=== PATIENT | female | born 1930 | race Caucasian/White ===

== ENCOUNTER 2020-01-07 21:08 | Inpatient (IN) | payer OTHER, MEDICAID ==
[~2020-01-07] VITALS: Ht 144.8 cm; Wt 65.8 kg
--- NOTE | 2020-01-07 21:11 | NUR ---
Patient triaged and placed in waiting room. VSS and patient appears in no acute distress at this time. Accompanied by WHEELCHAIR TRANSPORTER, awaiting available bed, and MD notified of need for MSE.
[2020-01-07 21:15] VITALS: BP_SYST 134
[2020-01-08 00:21] LABS: HEMATOCRIT 40.1 % (36-48); HEMOGLOBIN 12.6 g/dL (12.0-16.0); MEAN CORPUSCULAR HEMOGLOBIN 28 pg (27-31); MEAN CORPUSCULAR HGB CONC 31 % (32-36); MEAN CORPUSCULAR VOLUME 90 fL (79.0-98.0); PLATELET COUNT (AUTO) 240 K/uL (130-430); RED BLOOD CELL COUNT(AUTO) 4.46 MIL/uL (4.2-6.2); RED CELL DISTRIBUTION WIDTH 17.2 % (9.0-15.0); WHITE BLOOD COUNT (AUTO) 17.3 K/uL (4.8-10.8)
[2020-01-08 00:46] LABS: ANION GAP 8 (5-15); CALCIUM 9.5 mg/dL (8.4-11.0); CHLORIDE 97 mmol/L (98-107); CREATININE 0.74 mg/dL (0.55-1.30); GLUCOSE 180 mg/dL (70-99); POTASSIUM 3.5 mmol/L (3.5-5.1); SODIUM SERUM 131 mmol/L (136-145); UREA NITROGEN, BLOOD 20 mg/dL (8-21)
[2020-01-08 00:50] LABS: ALANINE AMINOTRANSFERASE 16 U/L (12-78); ALBUMIN 2.5 g/dL (3.4-4.8); ASPARTATE AMINOTRANSFERASE 27 U/L (10-37); CHOLESTEROL 94 mg/dL (<200); HDL CHOLESTEROL 42 mg/dL (>55); LDL CHOLESTEROL 40 mg/dL (<100); TOTAL BILIRUBIN 0.5 mg/dL (0.0-1.0); TRIGLYCERIDES 81 mg/dL (30-150)
[2020-01-08 01:02] LABS: ACETAMINOPHEN 2 ug/mL (1-30); ALCOHOL, BLOOD < 3 mg/dL (<10)
--- NOTE | 2020-01-08 01:20 | NUR ---
Patient to ER bed 4 to gown for evaluation. Side rails up. Report given to ARSLAN VILLASEÑOR.
--- NOTE | 2020-01-08 01:40 | NUR ---
Pt presents to ER from [facility] for medical clearance to be admitted to [facility]. Per facility, pt has increased confusion and agitation. Pt venezuelan speaking only. Pt presents alert and confused. Pt has no complaints at this time. Will continue to monitor.
[2020-01-08 01:41] LABS: ATYPICAL LYMPHOCYTES % 1 % (0-0); BAND % (MANUAL) 0 % (0-6); BASOPHILS % (MANUAL) 0 % (0-2); EOSINOPHILS % (MANUAL) 0 % (0-7); LYMPHOCYTES % (MANUAL) 12 % (20-46); MONOCYTES % (MANUAL) 3 % (0-11)
--- NOTE | 2020-01-08 02:00 | NUR ---
ER Dr. Thorpe at bedside examining patient.
[2020-01-08 02:24] LABS: ACETAMINOPHEN 3 ug/mL (1-30); FREE T4 (FREE THYROXINE) 1.6 ng/dl (0.8-1.5); THYROID STIMULATING HORMONE 2.26 uIu/mL (0.36-3.74)
--- NOTE | 2020-01-08 02:40 | NUR ---
Note anahyluis in EDM - 01/08/20 at 0558 by RAMÍREZ Pt presents to ER from [facility] for medical clearance to be admitted to [facility]. Per facility, pt has increased confusion and agitation. Pt estonian speaking only. Pt presents alert and confused. Pt has no complaints at this time. Will continue to monitor.
--- NOTE | 2020-01-08 04:20 | NUR ---
KASI Navarro at bedside performing in and out catheter to collect urine.
[2020-01-08 04:57] LABS: BILIRUBIN,URINE NEGATIVE (NEGATIVE); CLARITY/URINE CLEAR (CLEAR); COLOR,URINE YELLOW (YELLOW); GLUCOSE,URINE NEGATIVE (NEGATIVE); KETONES,URINE TRACE (NEGATIVE); LEUKOCYTE ESTERASE ,URINE 3+ (NEGATIVE); NITRITE, URINE NEGATIVE (NEGATIVE); PH,URINE 6.5 (5.0-8.0); PROTEIN URINE NEGATIVE (NEGATIVE); UROBILINOGEN,URINE 0.2 (0.2-1.0)
[2020-01-08 04:59] LABS: BLOOD, URINE TRACE (NEGATIVE)
[2020-01-08 05:02] LABS: BACTERIA,URINE MANY /HPF (None Seen); WBC,URINE >100 /HPF (0-3)
[2020-01-08 05:03] LABS: MUCUS,URINE 2+ /LPF (None Seen)
[2020-01-08 05:11] LABS: BARBITURATE, URINE NEGATIVE (NEG <=200); BENZODIAZEPINE, URINE NEGATIVE (NEG <=150); CANNABINOID, URINE NEGATIVE (NEG <=50); COCAINE, URINE NEGATIVE (NEG <=150); METHAMPHETAMINES SCREEN,URINE NEGATIVE (NEG <=500); OPIATE, URINE NEGATIVE (NEG <=100); PHENCYCLIDINE SCREEN,URINE NEGATIVE (NEG <=25); URINE AMPHETAMINE NEGATIVE (NEG <=500); URINE METHADONE NEGATIVE (NEG <=200)
[2020-01-08 05:12] LABS: UR TRICYCLIC ANTIDEPRESSANTS NEGATIVE (NEG <=300); URINE OXYCODONE SCREEN NEGATIVE (NEG <=100); URINE PROPOXYPHENE SCREEN NEGATIVE (NEG <=300)
[2020-01-08] MEDS ORDERED: NS 500 ML IV ONE (06:00)
[2020-01-08] MEDS ORDERED: cefTRIAXone 1 GM IVPB PREMIX 50 ML IV ONE (06:00)
--- NOTE | 2020-01-08 06:05 | NUR ---
David VILLASEÑOR and Ramon VILLASEÑOR at bedside moving pt up in bed.
[2020-01-08] MEDS ORDERED: LOVI30 SQ (06:15)
[2020-01-08] MEDS ORDERED: ASA81 PO ×2 (06:15→06:43)
[2020-01-08] MEDS ORDERED: DONE10TA44 PO (06:15)
[2020-01-08] MEDS ORDERED: MEMA5TAB PO (06:15)
[2020-01-08] MEDS ORDERED: LIP10 PO ×2 (06:15→06:43)
[2020-01-08] MEDS ORDERED: MEGE40TA PO (06:15)
[2020-01-08] MEDS ORDERED: LEVO88TA5 PO (06:15)
[2020-01-08] MEDS ORDERED: CILO100T PO (06:15)
--- NOTE | 2020-01-08 06:15 | NUR ---
Medication reconciliation completed with information provided by [facility]. Any prior medication reconciliation on file was reviewed and corrected.
--- NOTE | 2020-01-08 06:41 | NUR ---
Family member Martha Field called to let us know she is on the way to visit. States that patient was already being treated for UTI, does not know what antibiotics or course of care was already taken.
[2020-01-08] MEDS ORDERED: AMLO2.5T2 PO (06:43)
[2020-01-08] MEDS ORDERED: BISA10SU61 RC (06:43)
[2020-01-08] MEDS ORDERED: PRAZ2CAP PO (06:43)
[2020-01-08] MEDS ORDERED: ENAL10TA PO (06:43)
[2020-01-08] MEDS ORDERED: SSREG SUBCUT (06:43)
[2020-01-08] MEDS ORDERED: GLU500 PO (06:43)
[2020-01-08] MEDS ORDERED: TRAM50TA2 PO (06:43)
[2020-01-08] MEDS ORDERED: FURO-150 PO (06:43)
[2020-01-08] MEDS ORDERED: TRAZ-250 PO (06:43)
[2020-01-08] MEDS ORDERED: GLIP10TA21 PO (06:43)
[2020-01-08] MEDS ORDERED: MAGN800O PO (06:43)
[2020-01-08] MEDS ORDERED: NITR-85 PO (06:43)
[2020-01-08] MEDS ORDERED: METO50TA7 PO (06:43)
[2020-01-08] MEDS ORDERED: PRO40 PO (06:43)
[2020-01-08] MEDS ORDERED: POTA20TA83 PO (06:43)
[2020-01-08] MEDS ORDERED: L.RH1CAP PO (06:43)
--- NOTE | 2020-01-08 06:43 | NUR ---
Medication reconciliation completed with information provided by [facility]. Any prior medication reconciliation on file was reviewed and corrected.
--- NOTE | 2020-01-08 06:47 | NUR ---
Patient will be admitted to care of [facility]. Admitted to Medical Surgical unit. Awaiting bed placement. Belongings list completed. Complete and up to date summary report printed. SBAR report to be given at bedside with opportunity for questions.
--- NOTE | 2020-01-08 07:11 | NUR ---
Report given to Bryn to endorse care.
--- NOTE | 2020-01-08 08:00 | NUR ---
ASSUMPTION OF CARE: RECEIVED PT AWAKE, CONFUSED, VSS, DX: RISK FOR INJURY, R/T UTI, NO S/S OF DISTRESS, NO INDICATION OF PAIN OR DISCOMFORT, [place] SPEAKING WITH DAUGHTER AT BEDSIDE TO TRANSLATE TO PT, ORIENTED TO CALL LIGHT, POSITIONED FOR COMFORT, WATER PHONE AND CALL LIGHT PLACED WITHIN REACH, WILL CONT' TO MONITOR AND ASSESS. Addendum: 01/08/20 at 2009 by Lauren Ellington RN WRONG TIME
--- NOTE | 2020-01-08 08:00 | NUR ---
ASSUMPTION OF CARE: RECEIVED PT A/CONFUSED, BULGARIAN SPEAKING, DX: RISK FOR INJURY, R/T UTI, VSS, NO DISTRESS NOTED AT THIS TIME, NO INDICATION OF PAIN OR DISCOMFORT, BREATH SOUNDS ARE CLEAR, BREATHING UNLABORED, AFEBRILE, IV SITE INTACT, PATENT, NO REDNESS OR SWELLING, ORIENTED TO CALL LIGHT PLACED WITHIN REACH, WILL CONT' TO MONITOR AND ASSESS. Addendum: 01/08/20 at 2009 by Lauren Ellington RN WRONG TIME
--- NOTE | 2020-01-08 08:10 | NUR ---
Patient will be admitted to care of [facility]. Admitted to MED SURG unit. Will go to room 125A. Belongings list completed. Complete and up to date summary report printed. SBAR report to be given at bedside with opportunity for questions.
--- NOTE | 2020-01-08 08:25 | NUR ---
Note undone in EDM - 01/08/20 at 0832 by SDJAY Patient given written and verbal discharge instructions and verbalizes understanding. ER discussed with patient the results and treatment provided. Patient in stable condition. ID arm band removed. Rx of TRAMADOL AND ZOFRAN given. Patient educated on pain management and to follow up with PMD. Pain Scale 3 BUT TOLERABLE. Opportunity for questions provided and answered. Medication side effect fact sheet provided.
--- NOTE | 2020-01-08 08:30 | NUR ---
ADMITTING NOTE: RECEIVED PATIENT FROM ED VIA GURNEY, BEDSIDE SBAR RECEIVED FROM CHILD WELFARE WORKER, PATIENT RESTING IN BED, RESPIRATION EVEN, NONLABORED ON ROOM AIR, PATIENT DENIES ANY PAIN, EDUCATED PATIENT REGARDING USE OF CALL LIGHT AND TO CALL FOR ASSISTANCE, PATIENT VERBALIZED UNDERSTANDING, CALL LIGHT WITH IN REACH, BED IN LOW AND LOCKED POSITION, BED ALARM ON.
[2020-01-08 08:34] VITALS: BP_SYST 154
--- NOTE | 2020-01-08 08:45 | NUR ---
DIRECTOR TELEHEALTH: BLUE PHONE USED FOR SLOVENIAN INTERPRETATION FOR ADMISSION ASSESSMENT, BANDAR DIRECTOR TELEHEALTH NUMBER [id number], PATIENT ORIENTED TO PERSON AND TIME, PATIENT UNABLE TO ANSWER ADDITIONAL QUESTION, PATIENT CONFUSED.
--- NOTE | 2020-01-08 09:20 | NUR ---
CLOSING NOTE: SBAR REPORT GIVEN TO RECEIVING RN, PATIENT RESTING IN BED, CALL LIGHT WITHIN REACH, BED IN LOW AND LOCKED POSITION, BED ALARM ON, CARE ENDORSED TO RECEIVING RN.
--- NOTE | 2020-01-08 10:00 | NUR ---
ADMISSION NOTES: RECEIVED PT A/CONFUSED, CUBAN SPEAKING, DX: RISK FOR INJURY, R/T UTI, VSS, NO DISTRESS NOTED AT THIS TIME, NO INDICATION OF PAIN OR DISCOMFORT, BREATH SOUNDS ARE CLEAR, BREATHING UNLABORED, AFEBRILE, IV SITE INTACT, PATENT, NO REDNESS OR SWELLING, ORIENTED TO CALL LIGHT PLACED WITHIN REACH, WILL CONT' TO MONITOR AND ASSESS.
[2020-01-08] MEDS ORDERED: DEXTROSE 50% JECT 50 ML DISP.SYRIN IVP PRN (10:15)
[2020-01-08] MEDS ORDERED: MUPIROCIN 2% TOPICAL OINTMENT 22 GM NS PRN (10:15)
[2020-01-08] MEDS ORDERED: ONDANSETRON HCL 4 MG/2 ML VIAL IVP PRN (10:15)
[2020-01-08] MEDS ORDERED: MORPHINE 2 MG/ML INJ. SYRINGE IVP PRN ×2 (10:15)
[2020-01-08] MEDS ORDERED: INSULIN REGULAR, HUMAN 100 UNITS/ML, 10 ML VIAL (humuLIN R) SUBCUT PRN (10:15)
[2020-01-08] MEDS ORDERED: traMADol HCL HCL 50 MG TABLET (ULTRAM) PO SCH (10:15)
[2020-01-08] MEDS ORDERED: DOCUSATE SODIUM 100 MG CAPSULE PO PRN (10:15)
[2020-01-08] MEDS ORDERED: MAGNESIUM SULFATE 50 ML IV PRN (10:15)
[2020-01-08] MEDS ORDERED: ZOLPIDEM TARTRATE 5 MG TABLET PO PRN (10:15)
[2020-01-08] MEDS ORDERED: ACETAMINOPHEN 325 MG TABLET PO PRN (10:15)
[2020-01-08] MEDS ORDERED: POTASSIUM CHLORIDE 20 MEQ TAB.PRT.SR PO PRN (10:15)
[2020-01-08] MEDS ORDERED: LORazepam 2 MG/ML VIAL IVP PRN (10:15)
[2020-01-08] MEDS ORDERED: POTASSIUM CHLORIDE 20 MEQ TAB.PRT.SR PO SCH (10:15)
[2020-01-08] MEDS ORDERED: traZODone HCL 50 MG TABLET (DESYREL) PO SCH (10:15)
--- NOTE | 2020-01-08 11:00 | NUR ---
GLUCOSE MONITORING: BLOOD SUGAR WOMFY=498, COVERED WITH 4 UNITS HUMALOG INSULIN, SQ, TOLERATED WELL, WILL CONT' WITH POC.
[2020-01-08] MEDS: NACL 0.9% 1,000 ML IV SCH ×2 (11:02→21:22)
--- NOTE | 2020-01-08 11:27 | NUR ---
CONSULTATION PAGED/CALLED Reason for Consultation: [] PSYCH D/O Person Who was Notified: [] FLORENTINO Consulting Physician: [] DR ALVES Fire Hydrant Mechanic Specialty: [] PSYCH Ordering Physician: [] DR MARS
--- NOTE | 2020-01-08 12:00 | NUR ---
MAGICIAN/ILLUSIONIST: MEDS GIVEN, PER ORDERED BY Steve, TOLERATED WELL, WILL CONT' WITH POC.
[2020-01-08] MEDS: ENALAPRIL MALEATE 10 MG TABLET (VASOTEC) PO SCH ×2 (12:49→22:53)
[2020-01-08] MEDS: FUROSEMIDE 20 MG TABLET PO SCH (12:50)
[2020-01-08] MEDS: METOPROLOL SUCCINATE 50 MG TAB.SR.24H (TOPROL XL) PO SCH ×2 (12:51→21:00)
[2020-01-08] MEDS: PRAZOSIN HCL 1 MG CAPSULE PO SCH ×2 (12:53→21:00)
[2020-01-08] MEDS: INSULIN LISPRO SLIDING SCALE 100 UNITS/ML VIAL (humaLOG) SUBCUT PRN (13:06)
[2020-01-08] MEDS ORDERED: traMADol HCL HCL 50 MG TABLET (ULTRAM) PO PRN (15:04)
--- NOTE | 2020-01-08 17:00 | NUR ---
GLUCOSE MONITORING: BLOOD SUGAR DTGBM=277, NO COVERAGE REQUIRED.
--- NOTE | 2020-01-08 17:00 | NUR ---
WOUND EVALUATION: Wound Consult received from Dr. Perdomo. Thank you, Dr. Perdomo, for the consult. Patient received in a [place] Bed with a mattress, awake, alert, and oriented. Patient is unable to turn independently. Past Medical History: Underlying psychiatric issues, multiple UTI's, right shoulder rotator cuff surgery, DJD of the knees and Lumbar Spinal Stenosis, Cholecystectomy. Recent Labs: WBC 17.3, RBC 4.46, hemoglobin 12.6, hematocrit 40.1, POC glucose 234, BNP 135, sodium 131, chloride 97, glucose 180, albumin 2.5. Microbiology: MRSA screen results in progress. Urine culture results in progress. Intrinsic factors that delay wound healing: Hyperglycemia, Hypoalbuminemia. Extrinsic factors that delay wound healing: Decreased mobility. Wound Assessment: 1. Left buttock: Scar tissue, present on admission. Has 100% pink scar tissue. Site measures 3.6 cm x 1.5 cm. 2. Right buttock: Scar tissue, present on admission. Has 100% pink scar tissue. Site measures 3.0 cm x 1.7 cm. Recommend: Cleanse involved areas with mild soap and water. Pat dry. Apply Calmoseptine cream to involved areas. Cover with Sacral foam dressing. Perform site care daily, and as needed for dressing soiling or dislodgment. 3. Left posterior heel: Unstageable pressure ulcer, present on admission. Wound bed has 100% yellow tissue. No odor, no drainage. Periwound pink. Surrounding tissue is white. Wound measures 1.4 cm x 0.7 cm. Recommend: Cleanse wound with normal saline. Apply moisture barrier cream to brenden-wound. Apply Venelex ointment to wound bed. Cover with foam dressing. Perform wound care daily, and as needed for dressing soiling or dislodgement. Offload heel with HeeLift Boot at all times. Also recommend: Reposition patient every 2 hours with pillow support and off-load pressure areas with pillows for pressure re-distribution. Offload, elevate and float bilateral heels with pillows. Perform skin care and monitor skin integrity Q shift. Use moisture barrier cream on buttocks and other moisture susceptible areas QID and as needed for soiling. Place patient on a low air-loss mattress.
[2020-01-08] MEDS ORDERED: BALSAM PERU/CASTOR OIL 60 GM OINT...G. TP PRN (18:00)
[2020-01-08] MEDS ORDERED: MENTHOL/ZINC OXIDE 113 GM OINT. TP PRN (18:00)
[2020-01-08 19:00] VITALS: BP_SYST 141
[2020-01-08] MEDS: glipiZIDE XL 5 MG TAB ( GLUCOTROL XL) PO SCH (22:49)
[2020-01-08] MEDS: ATORVASTATIN 10 MG TABLET PO SCH (22:53)
[2020-01-08] MEDS: HEPARIN SODIUM,PORCINE 5000 UNITS/ML VIAL SUBCUT SCH (23:00)
[2020-01-09 01:35] VITALS: BP_SYST 130
[2020-01-09] MEDS: cefTRIAXone 1 GM IVPB PREMIX 50 ML IV SCH (06:36)
[2020-01-09 06:51] LABS: BASOPHILS # (AUTO) 0.1 K/uL (0.0-0.2); BASOPHILS % (AUTO) 0.7 % (0.0-2.0); EOSINOPHILS # (AUTO) 0.1 K/uL (0.0-0.4); EOSINOPHILS % (AUTO) 1.2 % (0.0-4.0); HEMATOCRIT 40.7 % (36-48); HEMOGLOBIN 13.2 g/dL (12.0-16.0); LYMPHOCYTES # (AUTO) 3.2 K/uL (1.0-5.5); LYMPHOCYTES % (AUTO) 31.3 % (20.5-51.5); MEAN CORPUSCULAR HEMOGLOBIN 29 pg (27-31); MEAN CORPUSCULAR HGB CONC 32 % (32-36); MEAN CORPUSCULAR VOLUME 90 fL (79.0-98.0); MONOCYTES # (AUTO) 0.7 K/uL (0.0-1.0); MONOCYTES % (AUTO) 7.3 % (1.7-9.3); NEUTROPHILS # (AUTO) 6.1 K/uL (1.8-7.7); NEUTROPHILS % (AUTO) 59.5 % (40.0-70.0); PLATELET COUNT (AUTO) 234 K/uL (130-430); RED BLOOD CELL COUNT(AUTO) 4.51 MIL/uL (4.2-6.2); RED CELL DISTRIBUTION WIDTH 17.5 % (9.0-15.0); WHITE BLOOD COUNT (AUTO) 10.2 K/uL (4.8-10.8)
[2020-01-09 07:16] LABS: ANION GAP 10 (5-15); CALCIUM 9.8 mg/dL (8.4-11.0); CHLORIDE 101 mmol/L (98-107); CREATININE 0.35 mg/dL (0.55-1.30); GLUCOSE 105 mg/dL (70-99); SODIUM SERUM 137 mmol/L (136-145); UREA NITROGEN, BLOOD 7 mg/dL (8-21)
[2020-01-09 08:00] VITALS: BP_SYST 144
--- NOTE | 2020-01-09 08:00 | NUR ---
PATIENT IS RESTLESS. IV PULLED REMOVED, AND NEW IV SITE IS ESTABLISHED ON RIGHT HAND, #22. RESPIRATION EVEN, NONLABORED ON ROOM AIR. PATIENT IS PROVIDED WITH REASSURANCE. WILL CONTINUE TO MONITOR.
[2020-01-09] MEDS: FUROSEMIDE 20 MG TABLET PO SCH (08:55)
[2020-01-09] MEDS: metFORMIN HCL 500 MG TABLET PO SCH (08:56)
[2020-01-09] MEDS: ENALAPRIL MALEATE 10 MG TABLET (VASOTEC) PO SCH (08:57)
[2020-01-09] MEDS: ASPIRIN 81 MG TAB.CHEW PO SCH (08:57)
[2020-01-09] MEDS: glipiZIDE XL 5 MG TAB ( GLUCOTROL XL) PO SCH ×2 (08:59→22:21)
[2020-01-09] MEDS: METOPROLOL SUCCINATE 50 MG TAB.SR.24H (TOPROL XL) PO SCH ×2 (08:59→22:20)
[2020-01-09] MEDS ORDERED: amLODIPine BESYLATE 5 MG TABLET PO SCH (09:00)
[2020-01-09] MEDS ORDERED: MAGNESIUM SULFATE 4 GM in D5W 250 ML IV ONE (09:00)
[2020-01-09] MEDS: HEPARIN SODIUM,PORCINE 5000 UNITS/ML VIAL SUBCUT SCH ×2 (09:02→22:18)
[2020-01-09] MEDS: POTASSIUM CHLORIDE 20 MEQ TAB.PRT.SR PO SCH (09:17)
--- NOTE | 2020-01-09 10:00 | NUR ---
PATIENT IS RESTING, TOLERATING WITHOUT DISTRESS.
[2020-01-09] MEDS: PRAZOSIN HCL 1 MG CAPSULE PO SCH ×2 (10:08→22:21)
[2020-01-09] MEDS: NACL 0.9% 1,000 ML IV SCH ×2 (10:09→22:21)
--- NOTE | 2020-01-09 11:30 | NUR ---
PATIENT BLOOD SUGAR 153. 2 UNITS OF RI IS GIVEN. WILL CONTINUE TO MONITOR.
[2020-01-09 12:20] VITALS: BP_SYST 136
--- NOTE | 2020-01-09 12:24 | NUR ---
Nutrition Update Khoi Scale 14 noted. Pt admitted for UTI Diet: [facility] BMI: 31.4 kg/m2 RD to follow per nutrition care standards.
[2020-01-09] MEDS: INSULIN LISPRO SLIDING SCALE 100 UNITS/ML VIAL (humaLOG) SUBCUT PRN ×2 (12:54→22:17)
--- NOTE | 2020-01-09 13:00 | NUR ---
family at bedside. POC is explained.
--- NOTE | 2020-01-09 15:11 | NUR ---
PATIENT IS TALKING WITH FAMILY MEMBERS. NO SIGNS OF DISTRESS NOTED.
[2020-01-09 16:21] VITALS: BP_SYST 115
--- NOTE | 2020-01-09 17:00 | NUR ---
BS 78. No coverage needed.
--- NOTE | 2020-01-09 19:30 | NUR ---
Opening notes Received report. Patient is resting in bed. No signs of distress noted. Breathing even and unlabored. IV patent and intact, infusing fluids. Hygiene care provided at this time, patient repositioned to comfort, but patient keeps moving self down in bed. No other needs. Call light with the patient. Safety precautions in place.
[2020-01-09 20:00] VITALS: BP_SYST 147
--- NOTE | 2020-01-09 22:05 | NUR ---
Medications Accucheck 185. Insulin given per siding scaled. Educated the action and side effects of due medications. Patient tolerated well, crushed in apple sauce. Patient ate half of apple sauce. Patient repositioned as patient continues to slide down in bed. No other needs. Call light with the patient. Safety precautions in place.
[2020-01-09] MEDS: ATORVASTATIN 10 MG TABLET PO SCH (22:20)
--- NOTE | 2020-01-09 23:00 | NUR ---
Endorsed care to Sara VILLASEÑOR. Patient is resting in bed. No signs of distress noted. Patient talking to self. IV patent and intact, infusing fluids. Patient was repositioned in bed. No other needs. Call light with the patient. Safety precautions in place.
[2020-01-09 23:39] VITALS: BP_SYST 147
[2020-01-10] MEDS: cefTRIAXone 1 GM IVPB PREMIX 50 ML IV SCH (06:09)
[2020-01-10 06:42] LABS: BASOPHILS # (AUTO) 0.1 K/uL (0.0-0.2); BASOPHILS % (AUTO) 0.7 % (0.0-2.0); EOSINOPHILS % (AUTO) 0.3 % (0.0-4.0); HEMOGLOBIN 12.4 g/dL (12.0-16.0); LYMPHOCYTES # (AUTO) 2.3 K/uL (1.0-5.5); LYMPHOCYTES % (AUTO) 20.7 % (20.5-51.5); MEAN CORPUSCULAR HEMOGLOBIN 29 pg (27-31); MEAN CORPUSCULAR HGB CONC 32 % (32-36); MEAN CORPUSCULAR VOLUME 91 fL (79.0-98.0); MONOCYTES # (AUTO) 0.7 K/uL (0.0-1.0); MONOCYTES % (AUTO) 5.8 % (1.7-9.3); NEUTROPHILS # (AUTO) 8.2 K/uL (1.8-7.7); NEUTROPHILS % (AUTO) 72.5 % (40.0-70.0); PLATELET COUNT (AUTO) 235 K/uL (130-430); RED BLOOD CELL COUNT(AUTO) 4.28 MIL/uL (4.2-6.2); RED CELL DISTRIBUTION WIDTH 17.8 % (9.0-15.0); WHITE BLOOD COUNT (AUTO) 11.3 K/uL (4.8-10.8)
[2020-01-10 06:56] LABS: ANION GAP 10 (5-15); CALCIUM 9.3 mg/dL (8.4-11.0); CHLORIDE 101 mmol/L (98-107); GLUCOSE 160 mg/dL (70-99); POTASSIUM 4.4 mmol/L (3.5-5.1); SODIUM SERUM 131 mmol/L (136-145); UREA NITROGEN, BLOOD 6 mg/dL (8-21)
[2020-01-10] MEDS: NACL 0.9% 1,000 ML IV SCH ×2 (07:08→23:08)
[2020-01-10 08:00] VITALS: BP_SYST 147
--- NOTE | 2020-01-10 08:00 | NUR ---
RN OPENING NOTE PATIENT IS RESTING IN BED, ALERT ORIENTEDX4. PATIENT DENIES PAIN OR DISCOMFORT. PATIENT WAS ASSESSED, VITAL SIGNS ARE STABLE. BED AT LOW POSITION AND CALL LIGHT WITHIN REACH, WILL CONTINUE TO MONITOR. Addendum: 01/10/20 at 2020 by Jaycob Rueda RN PATIENT ALERT ORIENTED X1. FLACC SCALE SHOWS PATIENT IN NO PAIN
--- NOTE | 2020-01-10 10:00 | NUR ---
RN NOTE PATIENT WAS GIVEN HER MEDICATION, AND FED HER BREAKFAST.
[2020-01-10] MEDS: PRAZOSIN HCL 1 MG CAPSULE PO SCH ×2 (10:25→23:05)
[2020-01-10] MEDS: METOPROLOL SUCCINATE 50 MG TAB.SR.24H (TOPROL XL) PO SCH ×2 (10:25→23:05)
[2020-01-10] MEDS: ENALAPRIL MALEATE 10 MG TABLET (VASOTEC) PO SCH (10:26)
[2020-01-10] MEDS: POTASSIUM CHLORIDE 20 MEQ TAB.PRT.SR PO SCH (10:26)
[2020-01-10] MEDS: glipiZIDE XL 5 MG TAB ( GLUCOTROL XL) PO SCH ×2 (10:27→21:00)
[2020-01-10] MEDS: FUROSEMIDE 20 MG TABLET PO SCH (10:27)
[2020-01-10] MEDS: ASPIRIN 81 MG TAB.CHEW PO SCH (10:27)
[2020-01-10] MEDS: HEPARIN SODIUM,PORCINE 5000 UNITS/ML VIAL SUBCUT SCH ×2 (10:30→23:09)
--- NOTE | 2020-01-10 12:00 | NUR ---
RN NOTE PATIENT RESTING IN BED. WAS EDUCATED ABOUT FALL PREVENTION, PATIENT IS INCOHERENT, WILL NEED TO REINFORCE
[2020-01-10 12:30] VITALS: BP_SYST 154
--- NOTE | 2020-01-10 14:00 | NUR ---
RN NOTE FAMILY MEMBERS CAME BY, PATIENT STARTED TO SPEAK AND TO BE MORE ALERT, FAMILY MEMBERS PARTICIPATED IN HELPING FEEDING THEIR MOTHER.
--- NOTE | 2020-01-10 15:14 | NUR ---
Dietitian Recommendations *Continue CCHO diet + Glucerna Shakes BID *Recommend Yobani BID to support wound healing *Encourage PO intake Please see Nutrition Assessment for further details. LT, RD
--- NOTE | 2020-01-10 16:00 | NUR ---
RN NOTE PATIENT IS RESTING IN BED, A NEW IV SITE IN THE LEFT WRIST WAS DONE FOR THE PATIENT. FAMILY MEMBERS BY BED SIDE, WILL CONTINUE TO MONITOR.
[2020-01-10 17:05] VITALS: BP_SYST 141
[2020-01-10] MEDS: metFORMIN HCL 500 MG TABLET PO SCH (17:23)
--- NOTE | 2020-01-10 18:00 | NUR ---
RN NOTE PATIENT BLOOD SUGAR WAS MEASURED TO BE 88 MG/DL. PATIENT GOT NO COVERAGE OF INSULIN, MEANWHILE PATIENT WAS SERVED HER DINNER, FAMILY MEMBERS ARE TALKING TO THEIR MOTHER AND FEEDING HER, PATIENT IS NO APPARENT PAIN OR DISTRESS WILL ENDORSE TO NEXT SHIFT.
--- NOTE | 2020-01-10 19:30 | NUR ---
Late Entry due to patient care Pt is sleeping quietly in bed and not in any distress. IVF of NS is infusing well in left hand at 90ml/hr without any signs of infiltration. Skin is warm and dry to touch. No signs or symptoms of hypoglycemia or hyperglycemia noted. Left heel dressing is dry and intact. Fall and safety precautions are in place.
[2020-01-10 20:00] VITALS: BP_SYST 154
--- NOTE | 2020-01-10 21:00 | NUR ---
Pt continues to rest quietly in bed without any distress noted. IVF is infusing well in left hand. Fall and safety precautions are in place.
--- NOTE | 2020-01-10 23:02 | NUR ---
Accucheck 92 and no Insulin coverage needed. Skin remains warm and dry to touch. Pt ate 20% dinner and refused HS snacks. HS Glipizide held. IVF is infusing well in left hand. Fall and safety precautions are in place.
[2020-01-10] MEDS: ATORVASTATIN 10 MG TABLET PO SCH (23:05)
--- NOTE | 2020-01-11 01:30 | NUR ---
Pt is sleeping comfortably in bed. IVF is infusing well in . Fall and safety precautions are in place.
[2020-01-11 02:04] VITALS: BP_SYST 157
--- NOTE | 2020-01-11 03:45 | NUR ---
Pt continues to sleep without any distress noted. IVF is infusing well in LH. Fall and safety precautions are in place.
--- NOTE | 2020-01-11 05:00 | NUR ---
Pt is awake and resting quietly in bed. Fall and safety precautions are in place. IVF is infusing well in .
[2020-01-11 06:27] LABS: ANION GAP 4 (5-15); CALCIUM 8.9 mg/dL (8.4-11.0); CHLORIDE 106 mmol/L (98-107); CREATININE 0.43 mg/dL (0.55-1.30); GLUCOSE 86 mg/dL (70-99); POTASSIUM 3.1 mmol/L (3.5-5.1); SODIUM SERUM 133 mmol/L (136-145); UREA NITROGEN, BLOOD 6 mg/dL (8-21)
[2020-01-11 06:33] LABS: BASOPHILS # (AUTO) 0.1 K/uL (0.0-0.2); BASOPHILS % (AUTO) 1.4 % (0.0-2.0); EOSINOPHILS # (AUTO) 0.4 K/uL (0.0-0.4); HEMATOCRIT 33.9 % (36-48); HEMOGLOBIN 11.3 g/dL (12.0-16.0); LYMPHOCYTES # (AUTO) 2.6 K/uL (1.0-5.5); LYMPHOCYTES % (AUTO) 36.4 % (20.5-51.5); MEAN CORPUSCULAR HEMOGLOBIN 30 pg (27-31); MEAN CORPUSCULAR HGB CONC 33 % (32-36); MEAN CORPUSCULAR VOLUME 91 fL (79.0-98.0); MONOCYTES # (AUTO) 0.7 K/uL (0.0-1.0); MONOCYTES % (AUTO) 10.2 % (1.7-9.3); NEUTROPHILS # (AUTO) 3.3 K/uL (1.8-7.7); PLATELET COUNT (AUTO) 282 K/uL (130-430); RED BLOOD CELL COUNT(AUTO) 3.75 MIL/uL (4.2-6.2); WHITE BLOOD COUNT (AUTO) 7.1 K/uL (4.8-10.8)
[2020-01-11] MEDS: cefTRIAXone 1 GM IVPB PREMIX 50 ML IV SCH (06:33)
[2020-01-11] MEDS: NACL 0.9% 1,000 ML IV SCH ×2 (06:45→16:04)
[2020-01-11 08:00] VITALS: BP_SYST 161
--- NOTE | 2020-01-11 08:00 | NUR ---
INITIAL ROUNDS Received pt AAOx2, no s/s resp distress, no c/o pain or discomfort. IVF infusing well to left hand at ordered rate with no s/s infiltration to site. Noted left heel in Heelift boot-repositioned for comfort/correct placement-noted dressing clean dry and intact to left heel and sacral area. Side rails up x3, bed alarm on for safety. Call light within reach.
[2020-01-11] MEDS: PRAZOSIN HCL 1 MG CAPSULE PO SCH ×2 (09:25→20:51)
[2020-01-11] MEDS: ENALAPRIL MALEATE 10 MG TABLET (VASOTEC) PO SCH (09:25)
[2020-01-11] MEDS: POTASSIUM CHLORIDE 20 MEQ TAB.PRT.SR PO SCH (09:26)
[2020-01-11] MEDS: ASPIRIN 81 MG TAB.CHEW PO SCH (09:26)
[2020-01-11] MEDS: FUROSEMIDE 20 MG TABLET PO SCH (09:26)
[2020-01-11] MEDS: glipiZIDE XL 5 MG TAB ( GLUCOTROL XL) PO SCH ×2 (09:26→20:43)
[2020-01-11] MEDS: METOPROLOL SUCCINATE 50 MG TAB.SR.24H (TOPROL XL) PO SCH ×2 (09:26→20:45)
[2020-01-11] MEDS: HEPARIN SODIUM,PORCINE 5000 UNITS/ML VIAL SUBCUT SCH ×2 (09:27→20:54)
[2020-01-11] MEDS: metFORMIN HCL 500 MG TABLET PO SCH ×2 (09:29→18:00)
--- NOTE | 2020-01-11 10:10 | NUR ---
KIANA/ Pt resting quietly in bed with no s/s resp distress, no c/o pain or discomfort. Pt voided, pt cleaned up and new gown placed on pt. Pt seen by Dr. Perdomo-discharge orders noted. All precautions remain in place. call light within reach.
--- NOTE | 2020-01-11 10:49 | NUR ---
Discharge Planning: DCP faxed pt referral to [facility] ([phone] p [phone]) DCP to follow up with [place] in admissions. Addendum: 01/11/20 at 1500 by Ana Dyer DP [facility] ([phone] p [phone]) per Ankita pt to go back to room 5B, diver to pic up from facility. DCP took patient packet to nurse station, nurse aware.
[2020-01-11 12:00] VITALS: BP_SYST 120
--- NOTE | 2020-01-11 16:11 | NUR ---
Physical Therapy order was received and the chart reviewed. Patient is very confused and does not follow commands. Spoke with RN who reported that the patient is pending discharge back to the SNF this afternoon. Plan: Will attempt the evaluation if the patient is here tomorrow.
[2020-01-11 16:17] VITALS: BP_SYST 134; BP_SYST 146
[2020-01-11 17:33] VITALS: BP_SYST 128
--- NOTE | 2020-01-11 18:03 | NUR ---
report called to facility in [place] to [facility] and transfer for 1830.
--- NOTE | 2020-01-11 19:14 | NUR ---
report to nt shift given
--- NOTE | 2020-01-11 19:15 | NUR ---
Opening Note Received patient resting in bed, and removing blankets. IV is SL to left hand. Bed is locked in lowest position, side rails up 3x, bed alarm on and call light w/in reach. She speaks Icelandic and I spoke to her in Icelandic. She said she wants to go home and I explained that we are waiting for the transportation arrive.
[2020-01-11 20:00] VITALS: BP_SYST 151
--- NOTE | 2020-01-11 20:05 | NUR ---
Patient Care V/S taken and blood pressure 151/95, she has blood pressure medication due and it will be given. She pulled off her diaper, which was wet. She was provided with pericare, a new diaper and a new orange sheet. She is discharging and therefore was provided the diaper. She was repositioned for comfort. Safety precautions in place and call light w/in reach.
[2020-01-11] MEDS: INSULIN LISPRO SLIDING SCALE 100 UNITS/ML VIAL (humaLOG) SUBCUT PRN (20:42)
[2020-01-11] MEDS: ATORVASTATIN 10 MG TABLET PO SCH (20:45)
--- NOTE | 2020-01-11 20:59 | NUR ---
Medications Due medications given, patient swallowed capsules and tablets w/out difficulty; Educated on side effects and she said "that's good" did not have questions. Fingerstick BG test done w/ result of 175 mg/dL and insulin was given per sliding scale. Presently she is comfortable and waiting for ambulance transportation. Call light w/in reach,
--- NOTE | 2020-01-11 22:35 | NUR ---
Discharge D/C Patient Report given to Danae from [place] transport. Patient provide with copy of records which was given to transportation team: medication reconciliation form, D/C instructions, Exit Care provided. Patient verbalized understanding. discussed with patient the results and treatment provided. Patient was assisted to wheel chair fo transportation via [facility] to [facility], post acute rm 5. Patient in stable condition, ID band removed. IV catheter removed, intact and dressing applied, no active bleeding. Patient educated on pain management. All belongings sent with patient.
--- NOTE | 2020-01-11 22:36 | NUR ---
Notified Daughter Called daughter, Martha Field, and informed her that her mother was picked up and left our facility.
== END 2020-01-11 22:27 | DRG 689 ==
LOC: SED 21:08 → SMU 01-08 06:22
PROVIDERS: ADMIT General Practice; ATTEND General Practice
DX: N39.0 Urinary tract infection, site not specified (principal); G93.41 Metabolic encephalopathy; E87.1 Hypo-osmolality and hyponatremia; L89.621 Pressure ulcer of left heel, stage 1; M48.061 Spinal stenosis, lumbar region without neurogenic claudication; Z66 Do not resuscitate; E11.9 Type 2 diabetes mellitus without complications; E87.6 Hypokalemia; E83.42 Hypomagnesemia; F29 Unspecified psychosis not due to a substance or known physiological condition; E78.5 Hyperlipidemia, unspecified; K21.9 Gastro-esophageal reflux disease without esophagitis; F03.90 Unspecified dementia, unspecified severity, without behavioral disturbance, psychotic disturbance, mood disturbance, and anxiety; I10 Essential (primary) hypertension; M17.0 Bilateral primary osteoarthritis of knee; Z74.01 Bed confinement status; Z79.82 Long term (current) use of aspirin; Z79.899 Other long term (current) drug therapy; Z95.0 Presence of cardiac pacemaker; B96.1 Klebsiella pneumoniae [K. pneumoniae] as the cause of diseases classified elsewhere
CPT/HCPCS: 36415; 71045; 80048; 80053; 80061; 80307; 81000-TC; 82962; 83036; 83605; 83735-TC; 83880; 84439; 84443-TC; 85007; 85025; 85027; 87081; 87086; 87186-TC; 93005; 96361; 96365; 99285; G0480; G0481; G0482; J0696; J1644; J2060; J3475; J7030; J7060